=== PATIENT | male | born 1975 | race Caucasian/White ===

== ENCOUNTER 2016-11-03 12:16 | Inpatient (IN) | payer BC, OTHER ==
[~2016-11-03] VITALS: Ht 177.8 cm; Wt 62.6 kg
--- NOTE | 2016-11-03 13:25 | NUR ---
PRE ASSESSMENT: ASSESSED PT IN INTAKE. HIS GAIT IS STEADY. VS FOLLOWS BP 112/62 P 71 R 16 97.0 02 SAT 99%. HE REPORTS ALLERGIES TO BEE WASP AND HORNET STINGS ALONG WITH PCN AND SEROQUEL. HE DENIES A SZ HISTORY AND DENIES A PCP. HISTORY OF ANXIETY AND DEPRESSION. HE USES KLONOPIN AND TRAMADOL DAILY AND NEEDS HELP.
[2016-11-03 14:00] LABS: *AMPHETAMINE, URINE NEGATIVE (NEGATIVE); *BARBITURATE, URINE NEGATIVE (NEGATIVE); *CANNABINOID, URINE POSITIVE (NEGATIVE); *COCCAINE, URINE NEGATIVE (NEGATIVE); *OPIATE, URINE NEGATIVE (NEGATIVE); *PHENCYCLIDINE SCREEN,URINE NEGATIVE (NEGATIVE)
[2016-11-03] MEDS ORDERED: BUPRENORPHINE HCL 2 MG TAB.SUBL SL PRN (14:00)
[2016-11-03] MEDS ORDERED: LORAZEPAM 1 MG TABLET PO PRN ×2 (14:00)
[2016-11-03] MEDS ORDERED: IBUPROFEN 400 MG TABLET PO PRN (14:00)
[2016-11-03] MEDS ORDERED: METHOCARBAMOL 750 MG TABLET PO PRN (14:00)
[2016-11-03] MEDS ORDERED: ONDANSETRON ODT 4 MG TAB.RAPDIS SL PRN (14:00)
[2016-11-03] MEDS ORDERED: ACETAMINOPHEN 325 MG TABLET PO PRN (14:00)
[2016-11-03] MEDS ORDERED: MIRALAX 17 GM POWD.PACK PO PRN (14:00)
[2016-11-03] MEDS ORDERED: DICYCLOMINE HCL 20 MG TABLET PO PRN (14:00)
[2016-11-03] MEDS ORDERED: LOPERAMIDE HCL 2 MG CAPSULE PO PRN ×2 (14:00)
[2016-11-03] MEDS ORDERED: LORAZEPAM 2 MG/1 ML VIAL IM PRN (14:00)
[2016-11-03] MEDS ORDERED: diphenhydrAMINE 50 MG CAPSULE PO PRN (14:00)
[2016-11-03] MEDS ORDERED: MAGNESIUM HYDROXIDE 30 ML LIQUID UDC PO PRN (14:00)
[2016-11-03] MEDS ORDERED: MAG HYDROX/AL HYDROX/SIMETH 30 ML LIQUID UDC PO PRN (14:00)
[2016-11-03] MEDS ORDERED: ONDANSETRON 4 MG/2 ML VIAL IM PRN (14:00)
--- NOTE | 2016-11-03 14:15 | NUR ---
ADMISSION: A 41 YO MALE ADMITTED FOR MEDICALLY SUPERVISED DETOX OF BZO AND OPIATES. HE STATES HE CANNOT STOP ON HIS OWN AND NEEDS HELP. HE USES 3 MG OF KLONOPIN DAILY X 6 MONTHS AND TRAMADOL 150 MG DAILY X 30 DAYS. HE DENIES SZ HX. HE DENIES PCP. HE DOES REPORT A HISTORY OF ANXIETY, PANIC, AND DEPRESSION. 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 [facility] IS AT [facility] NOW AND UNEMPLOYED. HIS SKIN IS INTACT. HIS GAIT IS STEADY. SKIN IS WARM AND DRY. LUNG SOUNDS CLEAR HE REPORTS ANXIETY AND IRRITABILITY. CIWA 1 AND COWS 1 ON ADMISSION. VS WNL. HE STATES HE LAST USED 1 MG KLONOPIN AND 50 MG OGF TRAMADOL AT 0800 THIS AM. HE DENIES S/I AND H/I. HE BROUGHT IN CHANTIX AND STARTED DOSE PACK THIS AM. HE BROUGHT IN AN EPI PEN HE IS ALLERGIC TO BEES WASPS AND HORNETS ALONG WITH SEROQUEL AND PCN. ORIENTED PT TO STAFF AND UNIT. ENCOURAGED INCREASED FLUIDS. WILL CONTINUE TO MONITOR AND OFFER SAFE AND SUPPORTIVE ENVIRONMENT.
[2016-11-03 14:40] VITALS: BP 112/62
[2016-11-03 15:00] LABS: BASOPHILS # (AUTO) 0.1 K/uL (0.0-8.0); BASOPHILS % (AUTO) 0.5 % (0.0-2.0); EOSINOPHILS # (AUTO) 0.7 K/uL (0.0-0.7); EOSINOPHILS % (AUTO) 5.6 % (0.0-7.0); HEMATOCRIT 36.7 % (40-50); HEMOGLOBIN 12.2 G/DL (14.0-18.0); LYMPHOCYTES % (AUTO) 32.4 % (20.5-51.5); MEAN CORPUSCULAR HEMOGLOBIN 30.1 UUG (27.0-31.0); MEAN CORPUSCULAR HGB CONC 33 g/dL (32.0-37.0); MONOCYTES # (AUTO) 0.8 K/UL (0.1-1.30); MONOCYTES % (AUTO) 6.2 % (0.0-11.0); NEUTROPHILS # (AUTO) 6.6 K/UL (1.8-8.9); NEUTROPHILS % (AUTO) 55.3 % (38.5-71.5); PLATELET COUNT (AUTO) 318 K/UL (150-450); RED BLOOD CELL COUNT(AUTO) 4.03 MIL/UL (4.7-6.1); WHITE BLOOD COUNT (AUTO) 12.2 K/UL (4.0-11.2)
[2016-11-03] MEDS ORDERED: LORAZEPAM 1 MG TABLET PO SCH (15:00)
[2016-11-03 15:03] LABS: ETHANOL < 3 MG/DL (0-0)
[2016-11-03 15:07] LABS: ALANINE AMINOTRANSFERASE 18 U/L (16-63); ALKALINE PHOSPHATASE 71 U/L (50-136); ASPARTATE AMINOTRANSFERASE 24 U/L (15-37); BILIRUBIN,TOTAL 0.3 mg/dL (0.2-1.0); CARBON DIOXIDE 28 mmol/L (21-32); CHLORIDE 101 mmol/L (98-107); GLUCOSE 102 mg/dL (74-106); MAGNESIUM 1.7 mg/dL (1.8-2.4); POTASSIUM 3.6 mmol/L (3.5-5.1); TOTAL PROTEIN, SERUM 6.9 g/dL (6.4-8.2); UREA NITROGEN, BLOOD 5 mg/dL (7-18)
[2016-11-03] MEDS ORDERED: THIAMINE HCL 200 MG/2 ML VIAL IM ONE (15:13)
[2016-11-03 15:30] LABS: THYROID STIMULATING HORMONE 2.999 mIU/mL (0.358-3.740)
[2016-11-03 16:00] VITALS: BP 96/60
--- NOTE | 2016-11-03 16:10 | NUR ---
PRN ATIVAN 1 MG PO AND IMODIUM 4MG PO GIVEN FOR CIWA 8 AND 3 EPISODES OF DIARRHEA. COWS 5. WILL MONITOR EFFECTIVENESS OF PRN.
[2016-11-03] MEDS ORDERED: EPIN0.3A3 IM (16:11)
[2016-11-03] MEDS ORDERED: VARE1TAB21 PO (16:13)
--- NOTE | 2016-11-03 17:10 | NUR ---
PT STATES HE FEELS BETTER AND THE DIARRHEA IS GONE. CIWA NOW 3.
--- NOTE | 2016-11-03 18:57 | NUR ---
END OF SHIFT: NEW ADMIT IS LAYING IN BED ASLEEP. BED LOCKED AND LOW. CALL OLIVER IN REACH. WILL PASS SHIFT REPORT TO ONCOMING NIGHT NURSE.
--- NOTE | 2016-11-03 19:15 | NUR ---
Start of Shift Note: Patient is a 41 y/o male admitted today 11/03/16 for Opiate and Benzo dependence. Patient reported using Klonopin 3mg PO daily and Tramadol 150mg daily for 6 months. Patient also smokes Marijuana few times weekly. Patient has medical history of Panic attack and Anxiety. Patient is on a regular diet with allergies to Bees, Wasps, Hornets, Seroquel and Penicillins. Skin intact. Patient is on a PRN Subutex and 5-day Ativan taper to be started tomorrow. Last COWS 5 CIWA 3. Patient was given PRN Ativan and Immodium during day shift. Patient is alert & oriented x4. No shortness of breath noted. Respiration even & unlabored. Abdomen soft & non-distended. No nausea/ vomiting noted. Patient complains of sweating, chills & anxiety. Patient denies pain/discomfort. No hallucinations noted. No tremors noted. Safety precautions are in place. Bed locked in lowest position. Both side rails up. Call light within pt's reach. Will continue to monitor patient.
[2016-11-03] MEDS ORDERED: MAGNESIUM OXIDE 400 MG TABLET PO ONE (19:30)
[2016-11-03 20:00] VITALS: BP 112/69
--- NOTE | 2016-11-03 21:02 | NUR ---
New orders to give Magnesium Oxide 400mg to be given to patient for Magnesium level of 1.7. Orders noted and carried out. Administered as ordered and tolerating well. Will continue to monitor patient.
[2016-11-04] VITALS: BP 111/75
[2016-11-04 04:00] VITALS: BP 108/62
--- NOTE | 2016-11-04 07:29 | NUR ---
End of Shift Note: Patient is a 41 y/o male admitted today 11/03/16 for Opiate and Benzo dependence. Patient reported using Klonopin 3mg PO daily and Tramadol 150mg daily for 6 months. Patient also smokes Marijuana few times weekly. Patient has medical history of Panic attack and Anxiety. Patient is on a regular diet with allergies to Bees, Wasps, Hornets, Seroquel and Penicillins. Skin intact. Patient is on a PRN Subutex and 5-day Ativan taper to be started today. Last COWS 6 CIWA 5. Pt's Magnesium level is 1.7 and was replaced with Magnesium Oxide 400mg PO as ordered. No PRN medications were given to patient during my shift. Pt remained stable and vitals remained WNL. Pt remained compliant. Pt slept for a total of 9 hours. Pt consumed 1035ml of fluids. Pt voided 3x with no bowel movement. All needs attended & met. Safety measures in place. Will endorse pt to day shift nurse.
--- NOTE | 2016-11-04 07:30 | NUR ---
START OF SHIFT NOTE: Received report from night shift supervisor nurse. Patient is a 41 y/o male admitted today 11/03/16 for Opiate and Benzo dependence. Pt to start Ativan taper this AM. Pt is alert and oriented X 4. Color good, skin warm and dry. Respirations even and unlabored. Resting in bed. Safety precautions observed. Call light within reach. Will continue to monitor.
[2016-11-04 08:00] VITALS: BP 105/62
[2016-11-04 08:06] LABS: HEPATITIS B SURFACE AG Negative (Negative)
[2016-11-04] MEDS: DOCUSATE SODIUM 250 MG CAPSULE PO SCH (09:00)
[2016-11-04] MEDS ORDERED: 5 DAY TAPER OF LORAZEPAM -SERENITY PROTOCOL PO PRN (09:00)
[2016-11-04] MEDS: FOLIC ACID 1 MG TABLET PO SCH (09:00)
[2016-11-04] MEDS ORDERED: TUBERCULIN,PURIF.PROT.DERIV. 5 TU/0.1 ML TEST ID ONE (09:00)
[2016-11-04] MEDS: MULTIVITAMINS,THERAPEUTIC TABLET PO SCH (09:00)
[2016-11-04] MEDS ORDERED: LORAZEPAM 1 MG TABLET PO SCH (09:00)
[2016-11-04] MEDS: THIAMINE HCL 100 MG TABLET PO SCH (09:01)
[2016-11-04] MEDS: LORAZEPAM 1 MG TABLET PO SCH ×4 (09:01→21:02)
--- NOTE | 2016-11-04 09:35 | NUR ---
VSS CIWA 4 c/o anxiety. Pt refused TB test. States "I get a positive reading." CXR ordered.
[2016-11-04 12:58] VITALS: BP 100/60
--- NOTE | 2016-11-04 15:03 | NUR ---
Therapist prompted client to attend group at 3:30, and client responded by stating "Okay I'll think about it".
[2016-11-04 16:51] VITALS: BP 114/70
--- NOTE | 2016-11-04 18:33 | NUR ---
END OF SHIFT NOTE: Report given to material handler 1st shift nurse . Patient is a 41 y/o male admitted 11/03/16 for Opiate and Benzo dependence. Pt started Ativan taper this AM. Tolerating well. Pt is alert and oriented X 4. Color good, skin warm and dry. Respirations even and unlabored. Vital signs have remained stable throughout shift . Last CIWA 1 @ 1700. Resting in bed. No prn medications given. Safety precautions observed. Call light within reach.
[2016-11-04 20:00] VITALS: BP 109/64
--- NOTE | 2016-11-04 20:00 | NUR ---
Start of Shift Pt is a 41 year old male admitted for Benzo dependence, placed on 5 day Ativan taper. Pt reported using Klonopin 3mg/daily. Pt also reported use of Tramadol 150mg/daily and Marijuana a few times weekly. PMH: Panic DO and Anxiety. Pt is allergic to PCN, honey bee, hornet venom and Quetiapine. Upon assessment, pt reports anxiety, skin is flushed, noted to be clammy, respirations even/unlabored, denies SOB/chest pain, denies n/v/d, denies SI/HI, bowel sounds active x4, abdomen soft. Safety measures in place, call light within reach, side rails up x2, bed locked and in low position. Will continue to monitor.
[2016-11-05] VITALS: BP 102/60
--- NOTE | 2016-11-05 | NUR ---
Vital Signs BP 102/60, pulse 68, SpO2 98%, temp 98.1, no pain 0/10 SUNIL serranored d/t pt sleeping - to assess while pt is awake as ordered. Safety measures in place, Will continue to monitor. Addendum: 11/05/16 at 0411 by ADRIA WANG RN respirations 14
[2016-11-05 04:00] VITALS: BP 107/62
--- NOTE | 2016-11-05 04:00 | NUR ---
Vital Signs BP 107/62, pulse 69, SpO2 97%, respirations 14, temp 98, no pain 0/10 CIWA deferred d/t pt sleeping to assess while pt is awake as ordered. Safety measures in place, Will continue to monitor.
--- NOTE | 2016-11-05 07:00 | NUR ---
End of Shift Pt is a 41 year old male admitted for Benzo dependence, placed on 5 day Ativan taper. Pt reported using Klonopin 3mg/daily. Pt also reported use of Tramadol 150mg/daily and Marijuana a few times weekly. PMH: Panic DO and Anxiety. Pt is allergic to PCN, honey bee, hornet venom and Quetiapine. During shift, pt presented with anxiety, skin was flushed, noted to be clammy scheduled taper medications administered, effective in management of s/s of withdrawal as reported per pt, CIWA 1. No PRN medications administered. Pt slept for 7 hours, intake of 355 ml PO, voids x1 and stool x0. Safety measures in place, call light within reach, side rails up x2, bed locked and in low position. Endorsed to day shift nurse.
--- NOTE | 2016-11-05 07:30 | NUR ---
START OF SHIFT Rcvd endorsement from ongoing nurse, client is in room, sound asleep, easy to arouse, RR 14 even, non-labored. Pt is a 41 year old male admitted for benzodiazepines and Tramadol withdrawal, placed on 5 day Ativan taper, tolerating well. Client is allergic to PCN, honey bee, hornet venom and Quetiapine. Last CIWA 1. No PRN medications administered. Pt slept for 7 hours. Safety measures in place, call light within reach, side rails up x2, bed locked and in low position. Endorsed to day shift nurse.
[2016-11-05 08:00] VITALS: BP 111/64
[2016-11-05 08:27] LABS: BASOPHILS # (AUTO) 0.1 K/uL (0.0-8.0); BASOPHILS % (AUTO) 0.9 % (0.0-2.0); EOSINOPHILS # (AUTO) 0.6 K/uL (0.0-0.7); EOSINOPHILS % (AUTO) 6.8 % (0.0-7.0); HEMATOCRIT 38.9 % (40-50); LYMPHOCYTES # (AUTO) 2.9 K/UL (0.8-4.8); LYMPHOCYTES % (AUTO) 30.7 % (20.5-51.5); MEAN CORPUSCULAR HEMOGLOBIN 30.9 UUG (27.0-31.0); MEAN CORPUSCULAR HGB CONC 34 g/dL (32.0-37.0); MEAN CORPUSCULAR VOLUME 92.2 FL (82.0-92.0); MONOCYTES # (AUTO) 0.5 K/UL (0.1-1.30); MONOCYTES % (AUTO) 5.2 % (0.0-11.0); NEUTROPHILS # (AUTO) 5.2 K/UL (1.8-8.9); NEUTROPHILS % (AUTO) 56.4 % (38.5-71.5); PLATELET COUNT (AUTO) 303 K/UL (150-450); RED BLOOD CELL COUNT(AUTO) 4.22 MIL/UL (4.7-6.1); WHITE BLOOD COUNT (AUTO) 9.3 K/UL (4.0-11.2)
[2016-11-05] MEDS ORDERED: LORAZEPAM 1 MG TABLET PO SCH (09:00)
[2016-11-05] MEDS: LORAZEPAM 1 MG TABLET PO SCH ×3 (09:23→21:00)
[2016-11-05] MEDS: THIAMINE HCL 100 MG TABLET PO SCH (09:23)
[2016-11-05] MEDS: DOCUSATE SODIUM 250 MG CAPSULE PO SCH (09:23)
[2016-11-05] MEDS: FOLIC ACID 1 MG TABLET PO SCH (09:23)
[2016-11-05] MEDS: MULTIVITAMINS,THERAPEUTIC TABLET PO SCH (09:23)
[2016-11-05 12:00] VITALS: BP 110/74
[2016-11-05] MEDS ORDERED: [UNRECOGNIZED DRUG - OTHER] IM PRN (13:30)
--- NOTE | 2016-11-05 14:00 | NUR ---
Written information regarding Hep C given to client, he verbalized understanding.
[2016-11-05 17:00] VITALS: BP 114/64
--- NOTE | 2016-11-05 19:02 | NUR ---
END OF SHIFT Endorsed client to incoming nurse, client is in patio, he had an uneventful day, Ativan taper medication was effective in managing withdrawal symptoms, with no ASE. Adequate PO intake 1515, void x 5, stool x 1. Client is allergic to PCN, honey bee, hornet venom and Quetiapine. Last CIWA 4. No PRN medications administered. Client compliant with 2/3 of group therapy. Safety measures rendered.
[2016-11-05 20:00] VITALS: BP 109/65
--- NOTE | 2016-11-05 20:00 | NUR ---
Start of Shift Pt is a 41 year old male admitted for Benzo dependence, placed on 5 day Ativan taper. Pt reported using Klonopin 3mg/daily. Pt also reported use of Tramadol 150mg/daily and Marijuana a few times weekly. PMH: Panic DO and Anxiety. Pt is allergic to PCN, honey bee, hornet venom and Quetiapine. Upon assessment, pt reports mild anxiety, skin is noted with moderate sweat, face flushed, respirations even/unlabored, denies SOB/chest pain, denies n/v/d, denies SI/HI, bowel sounds active x4, abdomen soft. CIWA 2, at 2000. Safety measures in place, call light within reach, side rails up x2, bed locked and in low position. Will continue to monitor.
--- NOTE | 2016-11-05 21:00 | NUR ---
Medication Refusal Pt refused scheduled taper medication - Ativan 2mg. Risks/benefits explained x3 - pt continued to refuse. Needs met, safety measures in place, will continue to monitor.
[2016-11-06] VITALS: BP 102/64
--- NOTE | 2016-11-06 | NUR ---
Vital Signs BP 102/64, pulse 62, SpO2 97%, respirations 16, temp 98.1, no pain 0/10 CIWA deferred d/t pt sleeping to assess while pt is awake as ordered. Safety measures in place, Will continue to monitor.
--- NOTE | 2016-11-06 04:00 | NUR ---
Pt refused to be woken for 0400 VS CIWA deferred d/t pt sleeping - to assess while pt is awake as ordered. Safety measures in place. Will continue to monitor.
--- NOTE | 2016-11-06 07:00 | NUR ---
End of Shift Pt is a 41 year old male admitted for Benzo dependence, placed on 5 day Ativan taper. Pt reported using Klonopin 3mg/daily. Pt also reported use of Tramadol 150mg/daily and Marijuana a few times weekly. PMH: Panic DO and Anxiety. Pt is allergic to PCN, honey bee, hornet venom and Quetiapine. During shift, pt presented with mild anxiety, skin noted with moderate sweat, face flushed scheduled taper medication refused by pt, education provided on risk/benefits pt continued to refuse. No PRN medications administered during shift, CIWA 2. Pt slept for 5 hours, intake of 545 ml PO, voids x and stool x0. Safety measures in place, call light within reach, side rails up x2, bed locked and in low position. Endorsed to day shift nurse.
--- NOTE | 2016-11-06 07:25 | NUR ---
Start of Shift Received report. Pt is a 41 year old male admitted for Benzo dependence. Pt is full code regular diet on fall and seizure precautions. Reports allergies to PNC, Honey bee and Seroquel. Pt continues the 5 day Ativan taper. PMH: Panic DO and Anxiety. pts last CIWA 2, at 1999. Pt did not receive any PRN medications during the shift supervisor. Fluids encouraged to facilitate the detox process. Pt refused his night time scheduled dose of ativan per shift supervisor nurse. Pt slept a total of 5 hours last night.Safety measures in place, call light within reach, side rails up x2, bed locked and in low position. Will continue to monitor and provide care.
[2016-11-06 08:00] VITALS: BP 124/67
[2016-11-06] MEDS: CHANTIX 1 MG PO SCH ×2 (09:00→17:00)
[2016-11-06] MEDS ORDERED: LORAZEPAM 1 MG TABLET PO SCH ×2 (09:00)
[2016-11-06] MEDS: LORAZEPAM 1 MG TABLET PO SCH ×2 (09:00→13:00)
[2016-11-06] MEDS: MULTIVITAMINS,THERAPEUTIC TABLET PO SCH (09:10)
[2016-11-06] MEDS: DOCUSATE SODIUM 250 MG CAPSULE PO SCH (09:10)
[2016-11-06] MEDS: THIAMINE HCL 100 MG TABLET PO SCH (09:10)
[2016-11-06] MEDS: FOLIC ACID 1 MG TABLET PO SCH (09:10)
--- NOTE | 2016-11-06 09:30 | NUR ---
Refused medication Pt refused his scheduled Ativan 1mg in the morning. Pt educated about the importance of medication compliance and the consequences of not taking the medications, pt verbalized understanding but still refused the medication. MD contacted and notified. pt is in stable condition all needs met will continue to monitor.
[2016-11-06 12:00] VITALS: BP 112/71
[2016-11-06] MEDS ORDERED: LORAZEPAM 1 MG TABLET PO PRN ×2 (14:15)
--- NOTE | 2016-11-06 15:00 | NUR ---
Refused medication Pt refused his scheduled Ativan 1mg in the evening. Pt educated about the importance of medication compliance and the consequences of not taking the medications, pt verbalized understanding but still refused the medication. MD contacted and notified. pt is in stable condition all needs met will continue to monitor.
[2016-11-06 16:00] VITALS: BP 128/88
[2016-11-06 18:48] LABS: *AMPHETAMINE, URINE NEGATIVE (NEGATIVE); *BARBITURATE, URINE NEGATIVE (NEGATIVE); *CANNABINOID, URINE POSITIVE (NEGATIVE); *COCCAINE, URINE NEGATIVE (NEGATIVE); *OPIATE, URINE NEGATIVE (NEGATIVE); *PHENCYCLIDINE SCREEN,URINE NEGATIVE (NEGATIVE)
--- NOTE | 2016-11-06 18:51 | NUR ---
End Of Shift Pt is a 41 year old male admitted for Benzo dependence. Pt is full code regular diet on fall and seizure precautions. Reports allergies to PNC, Honey bee and Seroquel. Pt continues the 5 day Ativan taper tolerating well.Pt is alert and oriented X4. Pt remains compliant with the treatment plan. Patient encouraged adequate PO fluid intake as tolerated. Upon assessment patient presented with mild anxiety, and barely sweating with his last CIWA was a 1. @1600. Detox medication effective at reducing withdrawal symptoms. Patient encouraged to attend group therapies/sessions to learn new coping skills to recent relapse, patient denies SI/HI. Pt ate all of his meals his total fluid intake was 2340ml with 5 void and 1 bowel movement Pt did not receive any PRN medications during the day shift. Safety measures in place. Call light kept within reach. Patient endorsed to knitting supervisor nurse, all pertinent information discussed
--- NOTE | 2016-11-06 19:45 | NUR ---
START OF SHIFT Pt is a 41 year old male admitted for Benzo dependence. Pt is full code regular diet on fall and seizure precautions. Reports allergies to PCN, Honey bee and Seroquel. Pt continues the 5 day Ativan taper tolerating well. Pt is alert and oriented X4. Pt remains compliant with the treatment plan. PO fluid intake encouraged as tolerated. Last CIWA was a 1. @1600. Pt did not receive any PRN medications during the day shift,scheduled to be discharged in the morning. Safety measures in place. Call light kept within reach. Will continue to monitor.
[2016-11-06 20:00] VITALS: BP 118/71
--- NOTE | 2016-11-07 | NUR ---
V/S REFUSED / CIWA DEFERRED Pt is peacefully sleeping in bed,breathing is even and non labored,no s/s of distress noted,all safety measures in place,will continue to monitor.
--- NOTE | 2016-11-07 06:41 | NUR ---
END OF SHIFT Pt is a 41 year old male admitted for Benzo dependence. Pt is full code regular diet on fall and seizure precautions. Reports allergies to PCN, Honey bee and Seroquel. Pt continues the 5 day Ativan taper tolerating well. Pt is alert and oriented X4. Pt remains compliant with the treatment plan. PO fluid intake encouraged as tolerated. Last CIWA was a 1. Pt did not receive any PRN medications;scheduled to be discharged this morning.Pt slept 7 hs,fluid intake was 795 mls,voided x 2. Safety measures in place. Call light kept within reach. Will continue to monitor.
--- NOTE | 2016-11-07 08:05 | NUR ---
START OF SHIFT: RECEIVED PT A/O X 4. HE PRESENTS WITH BRIGHTER AFFECT AND PLEASANT MOOD. DISCHARGE PLANNING IN PROGRESS FOR TODAY. HE STATES HE IS MOTIVATED TOWARD RECOVERY AND LOOKS FORWARD TO DC TO [facility] TODAY. WILL MEDICATE ORDERED. CIWA 0 TAPERS COMPLETED.
[2016-11-07] MEDS: MULTIVITAMINS,THERAPEUTIC TABLET PO SCH (08:27)
[2016-11-07] MEDS: DOCUSATE SODIUM 250 MG CAPSULE PO SCH (08:27)
[2016-11-07] MEDS: CHANTIX 1 MG PO SCH (08:28)
[2016-11-07] MEDS: FOLIC ACID 1 MG TABLET PO SCH (08:28)
[2016-11-07] MEDS: THIAMINE HCL 100 MG TABLET PO SCH (08:28)
[2016-11-07] MEDS ORDERED: LORAZEPAM 1 MG TABLET PO SCH ×3 (09:00)
--- NOTE | 2016-11-07 09:45 | NUR ---
DISCHARGE; PT IS A/O X 4. HE DENIES S/I AND H/I. HE STATES HE IS MOTIVATED TOWARD RECOVERY. HE STATES DETOX MEDS WERE EFFECTIVE. BELONGINGS RETURNED. EDUCATED PT ON DISCHARGE INSTRUCTIONS AND MEDICATIONS.PT EXPRESSED VERBAL UNDERSTANDING OF EDUCATION. NITRO MAN ESCORTED PT TO LOBBY WHERE HE WAS TRANSPORTED AT 0930 TO [facility].
[2016-11-08] MEDS ORDERED: LORAZEPAM 1 MG TABLET PO SCH (09:00)
== END 2016-11-07 09:30 | disposition home or self-care (01) | DRG 895 ==
LOC: SRC 13:20
PROVIDERS: ADMIT Internal Medicine; ATTEND Internal Medicine
PROC: HZ2ZZZZ Detoxification Services for Substance Abuse Treatment (ICD-10-PCS; principal; 2016-11-03)
PROC: HZ41ZZZ Group Counseling for Substance Abuse Treatment, Behavioral (ICD-10-PCS; 2016-11-05)
DX: F11.23 Opioid dependence with withdrawal (principal); F13.230 Sedative, hypnotic or anxiolytic dependence with withdrawal, uncomplicated; T14.90 Injury, unspecified; G89.21 Chronic pain due to trauma; X58.XXXS Exposure to other specified factors, sequela; F15.21 Other stimulant dependence, in remission; Z87.891 Personal history of nicotine dependence; F41.0 Panic disorder [episodic paroxysmal anxiety]; D72.829 Elevated white blood cell count, unspecified; F32.9 Major depressive disorder, single episode, unspecified
CPT/HCPCS: 36415; 70030-TC; 71010; 80307; 80346; 80349; 83735; 84443; 85025; 86580; 86592; 86705; 86803; 87340; 87806; A4663; G0480

== ENCOUNTER 2019-06-15 23:31 | Emergency (ER) | payer BC, MEDICAID, OTHER ==
[~2019-06-15] VITALS: Ht 177.8 cm; Wt 59.0 kg
[~2019-06-15 23:31] MED LIST: EPIN0.3A4 IM; VARE1TAB21 PO
[2019-06-15] MEDS ORDERED: HYDROCODONE/APAP 10-325 MG TABLET ONE (23:58)
[2019-06-15] MEDS ORDERED: ALPRAZOLAM 0.5 MG TABLET ONE (23:58)
[2019-06-16] MEDS ORDERED: HYDROCODONE/APAP 10-325 MG TABLET PO ONE
[2019-06-16] MEDS ORDERED: ALPRAZOLAM 0.25 MG TABLET PO ONE
--- NOTE | 2019-06-16 00:22 | NUR ---
Patient discharged to home in stable conditon. Written and verbal after care instructions given. Patient verbalizes understanding of instructions. AMBULATORY W/ STABLE GAIT ALL BELONGINGS W/ PT INSTRUCTED NOT TO DRIVE
[2019-06-16 00:23] VITALS: BP 102/46
== END 2019-06-16 00:23 | disposition home or self-care (01) ==
LOC: ER 23:35
DX: G89.4 Chronic pain syndrome (principal); M25.521 Pain in right elbow; M25.522 Pain in left elbow; F41.9 Anxiety disorder, unspecified; F15.10 Other stimulant abuse, uncomplicated; Z88.0 Allergy status to penicillin; Z88.8 Allergy status to other drugs, medicaments and biological substances; Z91.030 Bee allergy status; Z79.899 Other long term (current) drug therapy
CPT/HCPCS: A4663